=== PATIENT | male | born 1950 | race Caucasian/White ===

== ENCOUNTER 2017-03-16 18:28 | Inpatient (IN) | payer OTHER ==
[2017-03-16] MEDS ORDERED: NS 0.9% 1000 ML* 1,000 ML IV ONE (19:44)
--- NOTE | 2017-03-16 20:00 | ED ---
Chandan Martinez Benjamin, scribed for Darren Henning MD on 03/16/17 at 1945 . Abdominal Pain/Male - HPI Summary HPI Summary: 67yo male c/o intermittent diffuse abdominal pain. Pt was seen approximately 45 days ago for SBO and has hx of adhesions. Pt reported vomiting once this afternoon but denies any nausea right now. - History of Current Complaint Chief Complaint: EDAbdPain Stated Complaint: BOWEL ISSUES Time Seen by Provider: 03/16/17 19:37 Hx Obtained From: Patient Onset/Duration: Lasting Days, Still Present Timing: Intermittent Severity Initially: Moderate Severity Currently: Moderate Pain Intensity: 10 Pain Scale Used: 0-10 Numeric Location: Diffuse Radiates: No Character: Cramping, Tearing Aggravating Factor(s): Nothing Alleviating Factor(s): Nothing Associated Signs And Symptoms: Positive: Nausea - resolved, Vomiting - Allergies/Home Medications Allergies/Adverse Reactions: Allergies Allergy/AdvReac Type Severity Reaction Status Date / Time Penicillins [PCN] Allergy Anaphylatic Verified 07/07/14 20:57 Shock Home Medications: Home Medications Naproxen TAB* [Naprosyn 250 mg TAB*] 500 mg PO Q8H PRN 03/17/17 [History Confirmed 03/17/17] PMH/Surg Hx/FS Hx/Imm Hx Endocrine/Hematology History: Denies: Hx Diabetes Cardiovascular History: Denies: Hx Coronary Artery Disease, Hx Hypercholesterolemia, Hx Hypertension Respiratory History: Denies: Hx Asthma GI History: Reports: Hx Hiatal Hernia, Other GI Disorders - tumor resect from abdomen. SBO 12/2016 Denies: Hx Gastroesophageal Reflux Disease History: Denies: Hx Dialysis, Hx Renal Disease Musculoskeletal History: Reports: Hx Arthritis, Hx Osteoporosis, Other Musculoskeletal History - Right knee surgery, Right foot bone spurs removed Sensory History: Reports: Hx Contacts or Glasses Denies: Hx Hearing Aid Opthamlomology History: Reports: Hx Contacts or Glasses Neurological History: Denies: Hx Seizures - Surgical History Surgery Procedure, Year, and Place: Hernias, appendix removed in high school Infectious Disease History: Denies: Traveled Outside the [place] in Last 30 Days - Family History Known Family History: Positive: Cardiac Disease - Father of PA at age 50., Diabetes - Grandmother. - Social History Occupation: Unemployed Lives: Alone - residential Alcohol Use: None Substance Use Type: Reports: Other Substance Use Comment - Amount & Last Used: pt chews tobacco Smoking Status (MU): Never Smoked Tobacco Review of Systems Constitutional: Negative Eyes: Negative ENT: Negative Cardiovascular: Negative Respiratory: Negative Positive: Abdominal Pain, Vomiting - x1, Nausea - resolved Genitourinary: Negative Musculoskeletal: Negative Skin: Negative Neurological: Negative Psychological: Normal All Other Systems Reviewed And Are Negative: Yes Physical Exam Triage Information Reviewed: Yes Vital Signs On Initial Exam: Initial Vitals Temp Pulse Resp BP Pulse Ox 97.4 F 45 22 140/93 100 03/16/17 18:32 03/16/17 18:32 03/16/17 18:32 03/16/17 18:32 03/16/17 18:32 Vital Signs Reviewed: Yes Appearance: Positive: No Pain Distress, Thin Skin: Positive: Warm Head/Face: Positive: Normal Head/Face Inspection Eyes: Positive: YANDEL ENT: Positive: Hearing grossly normal Neck: Positive: Supple Respiratory/Lung Sounds: Positive: Clear to Auscultation, Breath Sounds Present Cardiovascular: Positive: RRR Abdomen Description: Positive: Soft, Distended. Negative: Nontender, Guarding Bowel Sounds: Positive: Present, Hypoactive Musculoskeletal: Positive: Strength/ROM Intact Neurological: Positive: Alert, Oriented to Person Place, Time Psychiatric: Positive: Affect/Mood Appropriate Diagnostics - Vital Signs Vital Signs Temp Pulse Resp BP Pulse Ox 03/16/17 18:32 97.4 F 45 22 140/93 100 - Laboratory Result Diagrams: 03/16/17 20:31 03/16/17 20:31 Lab Statement: Any lab studies that have been ordered have been reviewed, and results considered in the medical decision making process. - CT CT A/P W CT Interpretation: Positive (See Comments) - IMPRESSION: 1. MILD TO MODERATE MID SMALL BOWEL OBSTRUCTION. THE DISTRIBUTION OF NONDISTENDED SMALL BOWEL APPEARS SIMILAR TO THE PRIOR EXAM ALTHOUGH SLIGHTLY LESS DISTENDED. 2. SMALL AMOUNT OF FREE INTRAPERITONEAL FLUID. CT Interpretation Completed By: Radiologist Abdominal Pain Fem Course/Dx - Course Course Of Treatment: Discussed with Dr. Sorensen (Surgery) at 22:26. Dr. Sorensen recommends admission to the hospital, he will see him in the morning. Discussed with Dr. Alvarenga (Hospitalist) at 22:28 for admission. - Diagnoses Provider Diagnoses: SBO (small bowel obstruction) - Provider Notifications Instructed by Provider To: Admit As Inpatient Discharge - Discharge Plan Condition: Fair Disposition: ADMITTED TO [facility] The documentation as recorded by the Chandan burnett Benjamin accurately reflects the service I personally performed and the decisions made by me, Darren Henning MD.
[2017-03-16 20:44] LABS: Hematocrit 43 % (42-52); Hemoglobin 14.4 g/dl (14.0-18.0); Mean Corpuscular HGB Conc 33 g/dl (31-36); Mean Corpuscular Hemoglobin 31 pg (27-31); Mean Corpuscular Volume 92 fL (80-94); Mean Platelet Volume 7 um3 (7.4-10.4); Red Blood Count 4.71 10^6/ul (4.0-5.4); Red Cell Distribution Width 14 % (10.5-15); White Blood Count 9.3 10^3/ul (3.5-10.8)
[2017-03-16] MEDS ORDERED: Ondansetron INJ* 2 MG/ML VIAL IV ONE (20:45)
[2017-03-16 21:00] LABS: Albumin 4.3 g/dL (3.2-5.2); BUN/Creatinine Ratio 22.5 (8-20); Calcium 9.8 mg/dL (8.6-10.3); EGFR Non-African American 73.1 (>60); Globulin 4.4 g/dL (2-4); Magnesium 2.2 mg/dL (1.9-2.7); Potassium 4.3 mmol/L (3.5-5.0); Total Protein 8.7 g/dL (6.4-8.9)
[2017-03-16] MEDS ORDERED: Iohexol 300* (CONTRAST) 10 ML SDV IV ONE (21:14)
--- NOTE | 2017-03-16 21:54 | RAD ---
INDICATION: Abdominal pain, history of prior bowel obstructions and adhesions COMPARISON: Comparison is made with a prior CT of the abdomen and pelvis from December 30, 2016. TECHNIQUE: A CT scan of the abdomen and pelvis was performed with intravenous and oral contrast following intravenous injection of 79 ml of Omnipaque 300 nonionic contrast. Contiguous axial sections were obtained from the lung bases through the symphysis pubis. Images were reconstructed in the coronal and sagittal planes. FINDINGS: The lung bases are clear. No pleural effusion is present. The liver and spleen are within normal limits in size without significant focal abnormality. No calcified gallstones are seen. The pancreas appears to be within normal limits in size. The kidneys and adrenal glands are normal in size. No hydronephrosis is seen. No significant focal renal abnormality is seen. The prostate gland is enlarged measuring 5.2 cm in transverse dimension. The aorta is normal in caliber with mild calcific plaque present. No significant enlarged retroperitoneal lymph nodes are seen. Oral contrast is only present within the stomach and there is a paucity of abdominal fat limiting evaluation of the bowel. The stomach is nondistended. There is mild distention of proximal and mid small bowel loops extending into the lower abdomen. The distal small bowel and colon appear nondistended. There is air present throughout the colon. There is a moderate to large amount retained stool. There is surgical suture material present in the left upper quadrant. The patient has a history of a prior appendectomy. There is no evidence for diverticulitis or colitis. No free intraperitoneal air is seen. There is a small amount of free intraperitoneal fluid present within the pelvis. There is grade I anterior spondylolisthesis at the L5-S1 level. No significant focal osseous abnormality is seen. IMPRESSION: 1. MILD TO MODERATE MID SMALL BOWEL OBSTRUCTION. THE DISTRIBUTION OF NONDISTENDED SMALL BOWEL APPEARS SIMILAR TO THE PRIOR EXAM ALTHOUGH SLIGHTLY LESS DISTENDED. 2. SMALL AMOUNT OF FREE INTRAPERITONEAL FLUID.
[2017-03-16 22:19] LABS: Urine Bacteria Absent (Absent); Urine Bilirubin Negative (Negative); Urine Glucose Negative (Negative); Urine Nitrite Negative (Negative)
[2017-03-16] MEDS ORDERED: Morphine INJ* 2 MG/ML 1 ML SYRINGE IV ONE (22:31)
[2017-03-16] MEDS ORDERED: Morphine INJ* 2 MG/ML 1 ML SYRINGE IV PRN (22:56)
--- NOTE | 2017-03-16 23:16 | HP ---
H&P (Free Text) History and Physical: PCP: [facility] Date/Time of Evaluation: 03/16/2017 2250 CC: abdominal pain HPI: Mr Low is a 67YO incarcerated male HX SBO who presents reporting generally not feeling well this AM with abdominal cramping beginning after lunch progressing to severe pain with N/V, subjective chills, & sweats. He states this feels exactly like his 1st SBO in December of this year. Last flatus was return from CT. He had 2 small BMs today around lunch. Neither emesis nor stool had black or bloody content. He does relate to having 3 smaller episodes of abdominal pain since discharge in December that resolved by lying in bed and massaging his abdomen. PMedHx SBO OA Ambulatory Orders Acetaminophen TAB* [Tylenol TAB*] 650 mg PO Q4H PRN #30 tab 01/02/17 Allergies Penicillins [PCN] Allergy (Verified 07/07/14 20:57) Anaphylatic Shock PSurgHx appendectomy benign small bowel tumor resection incisional hernia repair x2 inguinal hernia repair SocHx: denies tobacco, alcohol, & recreational drugs; incarcerated, single, has 3 children; previously drove a truck; full code status FamHx: Mother passed of "old age". Father passed of CAD in his 50s. Sister passed of CAD. ROS: as above, otherwise reviewed and all were negative Constitutional: NAD, normally developed, well-nourished white male vitals: Vital Signs Temp 37.2 C 03/16/17 20:19 Pulse 48 03/16/17 22:30 Resp 16 03/16/17 22:45 BP 134/70 03/16/17 22:30 Pulse Ox 95 03/16/17 22:30 Intake & Output 03/15/17 03/16/17 03/16/17 23:59 11:59 23:59 Intake Total 1000 Balance 1000 Weight 59.421 kg Intake: IV Fluids 1000 Other: Date of Last Bowel 03/16/17 Movement HEENM: atraumatic; sclera/conjunctiva: non-icteric/clear; hearing: clinically intact; oropharynx: clear, mucosa moist Neck: soft tissue: non-tender; thyroid: normal Pulmonary: clear to auscultation bilaterally, good aeration, no accessory muscle use CV: RR/RR, normal S1S2, no carotid bruit, no jugular venous distention, 2+ B DP/ PT, no edema Abdominal: soft, non-distended, mildly diffusely tender, no rebound/guarding/ rigidity, normoactive bowel sounds, no hepatosplenomegaly or masses, no costovertebral angle tenderness Musculoskeletal: general: grossly intact, DIP deformities from OA; gait: in leg cuffs Integumental: normal appearance and texture of exposed skin Psychiatric orientation: AA&O to PPS affect: calm mood: pleasant eye contact: good content: reliable responses: timely insight: good Testing: Lab Results 03/16/17 03/16/17 03/16/17 Range/Units 20:31 20:31 20:31 WBC 9.3 (3.5-10.8) 10^3/ul RBC 4.71 (4.0-5.4) 10^6/ul Hgb 14.4 (14.0-18.0) g/dl Hct 43 (42-52) % MCV 92 (80-94) fL MCH 31 (27-31) pg MCHC 33 (31-36) g/dl RDW 14 (10.5-15) % Plt Count 189 (150-450) 10^3/ul MPV 7 L (7.4-10.4) um3 Neut % (Auto) 83.2 H (38-83) % Lymph % (Auto) 12.1 L (25-47) % [place] % (Auto) 4.0 (1-9) % Eos % (Auto) 0.2 (0-6) % Baso % (Auto) 0.5 (0-2) % Absolute Neuts (auto) 7.8 H (1.5-7.7) 10^3/ul Absolute Lymphs (auto) 1.1 (1.0-4.8) 10^3/ul Absolute Monos (auto) 0.4 (0-0.8) 10^3/ul Absolute Eos (auto) 0 (0-0.6) 10^3/ul Absolute Basos (auto) 0 (0-0.2) 10^3/ul Absolute Nucleated RBC 0 10^3/ul Nucleated RBC % 0 Sodium 137 (133-145) mmol/L Potassium 4.3 (3.5-5.0) mmol/L Chloride 103 (101-111) mmol/L Carbon Dioxide 22 (22-32) mmol/L Anion Gap 12 H (2-11) mmol/L BUN 23 (6-24) mg/dL Creatinine 1.02 (0.67-1.17) mg/dL Est GFR ( Amer) 94.0 (>60) Est GFR (Non-Af Amer) 73.1 (>60) BUN/Creatinine Ratio 22.5 H (8-20) Glucose 96 (70-100) mg/dL Lactic Acid 1.9 (0.5-2.0) mmol/L Calcium 9.8 (8.6-10.3) mg/dL Magnesium 2.2 (1.9-2.7) mg/dL Total Bilirubin 1.00 (0.2-1.0) mg/dL AST 20 (13-39) U/L ALT 12 (7-52) U/L Alkaline Phosphatase 55 (34-104) U/L Total Protein 8.7 (6.4-8.9) g/dL Albumin 4.3 (3.2-5.2) g/dL Globulin 4.4 H (2-4) g/dL Albumin/Globulin Ratio 1.0 (1-3) Lipase 16 (11.0-82.0) U/L Urine Color Urine Appearance Urine pH (5-9) Ur Specific [place] (1.010-1.030) Urine Protein (Negative) Urine Ketones (Negative) Urine Blood (Negative) Urine Nitrate (Negative) Urine Bilirubin (Negative) Urine Urobilinogen (Negative) Ur Leukocyte Esterase (Negative) Urine WBC (Auto) (Absent) Urine RBC (Auto) (Absent) Urine Bacteria (Absent) Urine Glucose (Negative) 03/16/ Range/Units 22:05 WBC (3.5-10.8) 10^3/ul RBC (4.0-5.4) 10^6/ul Hgb (14.0-18.0) g/dl Hct (42-52) % MCV (80-94) fL MCH (27-31) pg MCHC (31-36) g/dl RDW (10.5-15) % Plt Count (150-450) 10^3/ul MPV (7.4-10.4) um3 Neut % (Auto) (38-83) % Lymph % (Auto) (25-47) % [place] % (Auto) (1-9) % Eos % (Auto) (0-6) % Baso % (Auto) (0-2) % Absolute Neuts (auto) (1.5-7.7) 10^3/ul Absolute Lymphs (auto) (1.0-4.8) 10^3/ul Absolute Monos (auto) (0-0.8) 10^3/ul Absolute Eos (auto) (0-0.6) 10^3/ul Absolute Basos (auto) (0-0.2) 10^3/ul Absolute Nucleated RBC 10^3/ul Nucleated RBC % Sodium (133-145) mmol/L Potassium (3.5-5.0) mmol/L Chloride (101-111) mmol/L Carbon Dioxide (22-32) mmol/L Anion Gap (2-11) mmol/L BUN (6-24) mg/dL Creatinine (0.67-1.17) mg/dL Est GFR ( Amer) (>60) Est GFR (Non-Af Amer) (>60) BUN/Creatinine Ratio (8-20) Glucose (70-100) mg/dL Lactic Acid (0.5-2.0) mmol/L Calcium (8.6-10.3) mg/dL Magnesium (1.9-2.7) mg/dL Total Bilirubin (0.2-1.0) mg/dL AST (13-39) U/L ALT (7-52) U/L Alkaline Phosphatase (34-104) U/L Total Protein (6.4-8.9) g/dL Albumin (3.2-5.2) g/dL Globulin (2-4) g/dL Albumin/Globulin Ratio (1-3) Lipase (11.0-82.0) U/L Urine Color Reyna Urine Appearance Clear Urine pH 6.0 (5-9) Ur Specific [place] 1.042 H (1.010-1.030) Urine Protein 1+(30 mg/dl) H (Negative) Urine Ketones 1+ H (Negative) Urine Blood Negative (Negative) Urine Nitrate Negative (Negative) Urine Bilirubin Negative (Negative) Urine Urobilinogen Negative (Negative) Ur Leukocyte Esterase Negative (Negative) Urine WBC (Auto) Absent (Absent) Urine RBC (Auto) Absent (Absent) Urine Bacteria Absent (Absent) Urine Glucose Negative (Negative) CT abd/pel W, personally reviewed: IMPRESSION: 1. MILD TO MODERATE MID SMALL BOWEL OBSTRUCTION. THE DISTRI- BUTION OF NONDISTENDED SMALL BOWEL APPEARS SIMILAR TO THE PRIOR EXAM ALTHOUGH SLIGHTLY LESS DISTENDED. 2. SMALL AMOUNT OF FREE INTRAPERITONEAL FLUID. Impression: 67M HX multiple abdominal surgeries & SBO presents with recurrent SBO DIAGNOSIS & PLAN Primary SBO : NPO for bowel rest : NG tube for decompression & evacuation of stomach : pain control : Maria Del Rosario Zamudio MD surgery consulted by Kami Henning MD ED; will evaluate in AM : no current indication for ABX, monitor for fever, elevating WBCs, etc : supportive care Secondary OA : PRN acetaminophen Admission Rational: inpatient for SBO not anticipated to resolve adequately to allow for discharge w/i 48h DVTp: SCDs Code Status: full
[2017-03-17] MEDS: Morphine INJ* 2 MG/ML 1 ML SYRINGE IV PRN ×3 (01:28→12:41)
[2017-03-17] MEDS: NS 0.9% 1000 ML* 1,000 ML IV SCH ×3 (01:29→17:02)
[2017-03-17 06:34] LABS: Hematocrit 36 % (42-52); Mean Corpuscular HGB Conc 33 g/dl (31-36); Mean Corpuscular Hemoglobin 31 pg (27-31); Mean Corpuscular Volume 92 fL (80-94); Mean Platelet Volume 7 um3 (7.4-10.4); Red Cell Distribution Width 15 % (10.5-15); White Blood Count 5.9 10^3/ul (3.5-10.8)
[2017-03-17] MEDS ORDERED: Ondansetron INJ* 2 MG/ML VIAL IV PRN (08:20)
--- NOTE | 2017-03-17 08:21 | PN ---
Subjective Date of Service: 03/17/17 Interval History: Patient seen this morning. Says he is feeling better today. No N/V since ED. Passed a small amount of gas, reports small BMs yesterday AM, none since hospitalization. Reports 3 additional mild episodes of these symptoms since last discharge that he felt he was able to manage on his own in residential. Family History: Unchanged from Admission Social History: Unchanged from Admission Past Medical History: Unchanged from Admission Objective Active Medications: Sodium Chloride (Ns 0.9% 1000 Ml*) 1,000 mls @ 125 mls/hr IV PER RATE JAYNA Last Admin: 03/17/17 01:29 Dose: 125 mls/hr Morphine Sulfate (Morphine Inj (Syringe)*) 2 mg IV Q2H PRN PRN Reason: PAIN - MILD Last Admin: 03/17/17 06:10 Dose: 2 mg Vital Signs 03/16/17 03/16/17 03/16/17 22:59 23:00 23:30 Temperature Pulse Rate 56 70 49 Respiratory Rate Blood Pressure 154/79 129/81 (mmHg) O2 Sat by Pulse 98 99 98 Oximetry 03/17/17 03/17/17 03/17/17 07:10 07:41 07:55 Temperature 98.1 F Pulse Rate 45 Respiratory 18 18 18 Rate Blood Pressure 112/64 (mmHg) O2 Sat by Pulse 97 Oximetry Oxygen Devices in Use Now: None Appearance: Middle-aged, M, laying in bed in NAD Eyes: No Scleral Icterus Ears/Nose/Mouth/Throat: - - Dry MM Neck: NL Appearance and Movements; NL JVP Respiratory: Symmetrical Chest Expansion and Respiratory Effort, Clear to Auscultation Cardiovascular: - - Bradycardia, s1 and s2 present, no m/g/r Abdominal: - - Soft, non-distended, mild TTP diffusely, BS+ Lymphatic: No Cervical Adenopathy Extremities: No Edema Skin: No Rash or Ulcers Neurological: Alert and Oriented x 3 Lines/Tubes/Other Access: Clean, Dry and Intact Naso-enteral Tube Result Diagrams: 03/17/17 06:08 03/16/17 20:31 Assess/Plan/Problems-Billing Assessment: SBO in a 67 yo M with hx of abdominal surgeries and SBO - Patient Problems (1) SBO (small bowel obstruction) Current Visit: No Comment: Patient reports some improvement today. Continue NPO, NGT for now. Surgery to evaluate. Ordered repeat AXR for this morning. Continue analgesia/antiemetics. (2) Bradycardia Current Visit: No Comment: Baseline, asymptomatic (3) DVT prophylaxis Current Visit: No Comment: HSQ Status and Disposition: Inpatient for SBO
--- NOTE | 2017-03-17 09:10 | RAD ---
INDICATION: Small bowel obstruction. COMPARISON: Comparison is made with a prior CT of the abdomen and pelvis from March 16, 2017. TECHNIQUE: Supine and upright views of the abdomen were obtained. FINDINGS: The distal portion of a nasogastric tube is noted in the left upper quadrant. There is moderate distention of proximal and mid small bowel with air-fluid levels consistent with a partial small bowel obstruction. Air is seen within the colon which appears nondistended. No free intraperitoneal air is seen. Contrast is noted within the urinary bladder from the prior CT study. IMPRESSION: PARTIAL SMALL BOWEL OBSTRUCTION, UNCHANGED.
[2017-03-17] MEDS ORDERED: NS 0.9% 1000 ML* 1,000 ML IV SCH (12:35)
[2017-03-17] MEDS ORDERED: NS 0.9% 1000 ML* 1,000 ML IV ONE (16:56)
--- NOTE | 2017-03-17 23:17 | CONS ---
SURGICAL CONSULTATION: DATE OF CONSULTATION: 03/17/17 REASON FOR CONSULTATION: Small bowel obstruction. HISTORY OF PRESENT ILLNESS: Mr. Low is a 67-year-old gentleman, who presented from [facility] to the [facility] Emergency Room with the second hospital visit for small bowel obstruction. He had a previous admission in December of this year. The patient reports he had 3 similar episodes after his discharge in December, which resolved on their own. This particular episode began after lunch on 03/16/17. He recalls for breakfast, he had 6 slices of white toast and then for lunch, he had a Sloppy Giles and an apple. Immediately after, he began having generalized abdominal pain , crampy in nature, and progressively more severe. He was brought to the emergency room at [facility] where he experienced nausea and vomiting and had multiple episodes, which were brownish. There is no hematemesis. He has had no bowel movement on Saturday. He does recall passing flatus upon returning from his CT scan in the emergency room, yesterday. The patient has had no further bowel movement or flatus since. He has not experiencing any fevers or chills. PAST MEDICAL HISTORY: Osteoarthritis. 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 Subsequent incisional hernia at the midline laparotomy, which was repaired. Right inguinal hernia repair. ALLERGIES: PENICILLIN causes anaphylaxis. MEDICATIONS: Arthritis pain medication. SOCIAL HISTORY: He denies tobacco, alcohol, or recreational drug use. He is incarcerated at [facility]. 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 FAMILY HISTORY: Coronary artery disease. REVIEW OF SYSTEMS: A 14-point review of systems was completed and significant for the above mentioned issues otherwise negative. PHYSICAL EXAMINATION: General: Well-developed, well-nourished, 67-year-old gentleman, in no acute distress, lying in the hospital bed. Vital Signs: Temperature 98.0, pulse 44, respiration 16, O2 sat 97% on room air, blood pressure 134/63. HEENT: Head is normocephalic and atraumatic. Sclerae anicteric. Mucous membranes are moist. No otorrhea or rhinorrhea. NG tube is intact and draining brownish fluid. Dentition is poor. Neck is symmetrical. Trachea is midline. Abdomen has no obvious distention. Bowel sounds are present. Midline scar, well healed bilateral inguinal scars. Soft, nontender. No palpable masses. No hernias. Extremities are warm. LABORATORY DATA AND DIAGNOSTIC DATA: WBC is 5.9, hemoglobin 12, hematocrit 36, platelets 167. Chemistries on admission were essentially normal. CT scan images from 03/16/17 were reviewed and the patient noted to have the contrast only within the stomach. There is mild distention in the proximal and mid small bowel and air throughout the colon with retained stool. Staple lines noted in the left upper quadrant. IMPRESSION: This is a 67-year-old gentleman with a recurrent small bowel obstruction, which appears to be partial obstruction. At present, the patient does not have a surgical abdomen. PLAN/RECOMMENDATIONS: I agree with plan for NG tube decompression, bowel rest, and IV fluids. It seems likely he will resolve this without surgical intervention. We will repeat abdominal x-rays in the morning. We will follow. [id number]/[facility] #: [id number] [facility] STATE HOSPITALKami
[2017-03-18] MEDS: NS 0.9% 1000 ML* 1,000 ML IV SCH ×2 (02:06→19:23)
[2017-03-18 06:37] LABS: Calcium 8.1 mg/dL (8.6-10.3); EGFR African American 138.2 (>60); EGFR Non-African American 107.5 (>60); Potassium 3.7 mmol/L (3.5-5.0)
--- NOTE | 2017-03-18 07:25 | PN ---
Subjective Date of Service: 03/18/17 Interval History: Patient seen this morning. Feels abdomen is improving, passed gas last night. No BM yet. Family History: Unchanged from Admission Social History: Unchanged from Admission Past Medical History: Unchanged from Admission Objective Active Medications: Sodium Chloride (Ns 0.9% 1000 Ml*) 1,000 mls @ 125 mls/hr IV PER RATE JAYNA Morphine Sulfate (Morphine Inj (Syringe)*) 2 mg IV Q2H PRN Ondansetron HCl (Zofran Inj*) 4 mg IV Q4H PRN Vital Signs 03/17/17 03/17/17 03/17/17 07:41 07:55 11:54 Temperature 98.1 F 98.0 F Pulse Rate 45 44 Respiratory 18 18 14 Rate Blood Pressure 112/64 134/63 (mmHg) O2 Sat by Pulse 97 97 Oximetry 03/17/17 03/17/17 03/17/17 19:00 19:10 23:44 Temperature 99.3 F 98.5 F Pulse Rate 47 51 Respiratory 16 20 16 Rate Blood Pressure 150/67 127/65 (mmHg) O2 Sat by Pulse 96 97 Oximetry 03/18/17 03:27 Temperature 98.7 F Pulse Rate 49 Respiratory 16 Rate Blood Pressure 131/66 (mmHg) O2 Sat by Pulse 96 Oximetry Oxygen Devices in Use Now: None Appearance: Middle-aged, M, laying in bed in NAD Eyes: No Scleral Icterus Ears/Nose/Mouth/Throat: - - Dry MM Neck: NL Appearance and Movements; NL JVP Respiratory: Symmetrical Chest Expansion and Respiratory Effort, Clear to Auscultation Cardiovascular: NL Sounds; No Murmurs; No JVD, - - Bradycardia Abdominal: - - Soft, non-distended, mild TTP in upper quadrants, BS hypoactive Lymphatic: No Cervical Adenopathy Extremities: No Edema Skin: No Rash or Ulcers Neurological: Alert and Oriented x 3 Result Diagrams: 03/17/17 06:08 03/18/17 05:52 Assess/Plan/Problems-Billing Assessment: SBO in a 67 yo M with hx of abdominal surgeries and SBO - Patient Problems (1) SBO (small bowel obstruction) Current Visit: No Comment: NG tube output picked up however appears red/ bloody. Will check gastric occult blood and CBC. Start IV PPI. Stop NGT suction for now. May need GI consult. Appreciate surgery assistance. Patient passing gas now. Repeat AXR this morning. Continue NPO. Continue analgesia/antiemetics. (2) Bradycardia Current Visit: No Comment: Baseline, asymptomatic (3) DVT prophylaxis Current Visit: No Comment: SCDs Status and Disposition: Inpatient for SBO
[2017-03-18 07:39] LABS: Hematocrit 35 % (42-52); Hemoglobin 11.7 g/dl (14.0-18.0); Mean Corpuscular HGB Conc 33 g/dl (31-36); Mean Corpuscular Hemoglobin 31 pg (27-31); Mean Corpuscular Volume 93 fL (80-94); Mean Platelet Volume 7 um3 (7.4-10.4); Red Cell Distribution Width 14 % (10.5-15); White Blood Count 4.7 10^3/ul (3.5-10.8)
--- NOTE | 2017-03-18 08:42 | RAD ---
INDICATION: Follow-up small bowel obstruction COMPARISON: Most recent comparison radiograph is dated March 17, 2017 TECHNIQUE: Supine and upright views of the abdomen were obtained. FINDINGS: There is a gastric tube with the tip terminating below the level the diaphragm at the expected location of the gastric fundus. The dilated loops of air-filled small bowel seen on the previous radiograph are not well seen today. There is the appearance of air in the proximal small bowel but these loops are no longer pathologically dilated. No free intraperitoneal air is seen. No grossly abnormal or pathologic appearing calcifications are noted. Visualized bones are within normal limits for the patient's age. IMPRESSION: Resolution of pathologically dilated air-filled loops of small bowel.
[2017-03-18] MEDS: Pantoprazole IV* 40 MG IV SCH ×2 (08:57→21:01)
--- NOTE | 2017-03-18 10:58 | SURGPN ---
Subjective - Introduction -: Reports doing better, passing flatus. Feels hungry, wants to start eating. Denies nausea, vomiting or abdominal pain. NG clamped with coffee ground output noted. - Medications -: Active Medications Generic Name Dose Route Start Last Admin Trade Name Freq PRN Reason Stop Dose Admin Sodium Chloride 1,000 mls @ 125 mls/hr 03/17/17 16:56 03/18/17 02:06 Ns 0.9% 1000 Ml* IV 125 mls/hr PER RATE JAYNA Administration Morphine Sulfate 2 mg 03/16/17 23:58 03/17/17 12:41 Morphine Inj (Syringe)* IV 2 mg Q2H PRN Administration PAIN - MILD Ondansetron HCl 4 mg 03/17/17 08:20 Zofran Inj* IV Q4H PRN NAUSEA Pantoprazole Sodium 40 mg 03/18/17 09:00 03/18/17 08:57 Protonix Iv* IV 40 mg BID JAYNA Administration Objective - Objective -: Awake and alert. comfortable in bed. - Intake and Output -: Intake & Output 03/16/17 03/17/17 03/18/17 03/19/17 06:59 06:59 06:59 06:59 Intake Total 755 3165 0 Output Total 220 1725 200 Balance 535 1440 -200 Weight 132 lb 11.2 oz 136 lb 9.6 oz Intake: IV Fluids 580 3135 NS 580 3135 Oral 0 0 0 NG Tube Irrigate Amount 175 30 Output: NG Tube Drainage Amount 925 Urine 220 800 200 Other: # Bowel Movements 0 Surgical Physical Exam - Comments -: VSS, afebrile Lungs CTA bilat. Heart RRR, no murmurs. Abdomen soft, NT, ND. BS active in all quadrants. Abdominal x-ray reviewed, SBO resolved. Assessment and Plan - Assessment -: A 67 y/o male with multiple abdominal surgery, admitted with SBO, improving. - Plan Additional Comments: Despite coffee ground output in NG, likely it is traumatic in nature from having the NG in. Doubt any active GI bleed. Agree with PPI prophylaxis Also recommend d/c NG tube and start clear liquids today. SBO seems to be resolving. Will f/u with him during this admission.
[2017-03-19] MEDS: NS 0.9% 1000 ML* 1,000 ML IV SCH (03:17)
[2017-03-19 05:54] LABS: Hematocrit 32 % (42-52); Mean Corpuscular HGB Conc 34 g/dl (31-36); Mean Corpuscular Hemoglobin 31 pg (27-31); Mean Corpuscular Volume 91 fL (80-94); Mean Platelet Volume 6 um3 (7.4-10.4); Red Blood Count 3.54 10^6/ul (4.0-5.4); Red Cell Distribution Width 14 % (10.5-15); White Blood Count 4.7 10^3/ul (3.5-10.8)
[2017-03-19 06:09] LABS: BUN/Creatinine Ratio 22.1 (8-20); EGFR Non-African American 101.1 (>60)
--- NOTE | 2017-03-19 07:33 | PN ---
Subjective Date of Service: 03/19/17 Interval History: Patient seen this morning. Feels well, denies pain at this time. Tolerating clears. Had loose brown, non-bloody BM overnight. Family History: Unchanged from Admission Social History: Unchanged from Admission Past Medical History: Unchanged from Admission Objective Active Medications: Sodium Chloride (Ns 0.9% 1000 Ml*) 1,000 mls @ 125 mls/hr IV PER RATE JAYNA Morphine Sulfate (Morphine Inj (Syringe)*) 2 mg IV Q2H PRN Ondansetron HCl (Zofran Inj*) 4 mg IV Q4H PRN Pantoprazole Sodium (Protonix Iv*) 40 mg IV BID JAYNA Vital Signs 03/18/17 03/18/17 03/18/17 07:31 08:00 11:23 Temperature 97.9 F 98.0 F Pulse Rate 50 46 Respiratory 16 18 16 Rate Blood Pressure 105/59 110/58 (mmHg) O2 Sat by Pulse 97 98 Oximetry 03/18/17 03/19/17 23:55 03:11 Temperature 97.9 F 97.9 F Pulse Rate 41 41 Respiratory 16 16 Rate Blood Pressure 131/53 107/58 (mmHg) O2 Sat by Pulse 100 96 Oximetry Oxygen Devices in Use Now: None Appearance: Middle-aged, M, laying in bed in NAD Eyes: No Scleral Icterus Ears/Nose/Mouth/Throat: Mucous Membranes Moist Neck: NL Appearance and Movements; NL JVP Respiratory: Symmetrical Chest Expansion and Respiratory Effort, Clear to Auscultation Cardiovascular: NL Sounds; No Murmurs; No JVD, - - Bradycardia Abdominal: - - Soft, non-distended, minimal TTP in upper quadrants, BS+ Lymphatic: No Cervical Adenopathy Extremities: No Edema Skin: No Rash or Ulcers Neurological: Alert and Oriented x 3 Result Diagrams: 03/19/17 05:47 03/19/17 05:47 Microbiology and Other Data: Microbiology 03/18/17 07:35 Gastric Occult Blood - Final Gastric Fluid Assess/Plan/Problems-Billing Assessment: SBO in a 67 yo M with hx of abdominal surgeries and SBO - Patient Problems (1) SBO (small bowel obstruction) Current Visit: No Comment: Appreciate surgery assistance, blood in NG output thought most likely due to irritation of the stomach from the tube, removed. Has been tolerating clears, will advance to full this morning. Had non-bloody BM. Continue PPI for now. D/C IVF. (2) Bradycardia Current Visit: No Comment: Baseline, asymptomatic (3) DVT prophylaxis Current Visit: No Comment: SCDs Status and Disposition: Inpatient for SBO
[2017-03-19] MEDS: Pantoprazole IV* 40 MG IV SCH (08:18)
[2017-03-19 12:25] VITALS: BP 109/59
--- NOTE | 2017-03-19 12:49 | PN ---
Progress Note - Progress Note Date of Service: 03/19/17 Note: Surgery Progress: (patient seen this a.m. ~ 9) S: Feels better; sohail full liq for breakfast. Had BM yest. No pain subjectively. O: Vital Signs - 8 hr 03/19/17 03/19/17 03/19/17 07:31 08:00 11:33 Temperature 97.7 F 98.0 F Pulse Rate 43 44 Respiratory 16 16 16 Rate Blood Pressure 122/64 109/59 (mmHg) O2 Sat by Pulse 98 98 Oximetry Intake and Output Last 24 Hours 03/17/17 03/18/17 03/19/17 03/20/17 06:59 06:59 06:59 06:59 Intake Total 1755 3165 3757 560 Output Total 220 1725 2220 0 Balance 1535 1440 1537 560 Weight 132 lb 11.2 oz 136 lb 9.6 oz 140 lb 8 oz Intake: IV Fluids 1580 3135 2232 NS 580 3135 2232 Oral 0 0 1525 560 NG Tube Irrigate Amount 175 30 Output: NG Tube Drainage Amount 925 500 Urine 003 056 6963 0 Other: Date of Last Bowel 03/16/17 Movement # Bowel Movements 0 Estimated Stool Amount Medium Heart: reg (mildly michael, c/w baseline) Lungs: clear Abd: flat, nondistended; +BS; soft; nontender to palp A/P: SBO, resolving; agree w/ adv of diet and d/c. Surgical f/u prn, though there may be consideration of semi-elective laparoscopy as this is his 3 or 4th episode in the past 2 months, two requiring admission.
--- NOTE | 2017-03-20 02:27 | DS ---
DISCHARGE SUMMARY: DATE OF ADMISSION: 03/16/17 DATE OF DISCHARGE: 03/19/17 The patient is an inmate at [facility]. PRINCIPAL DISCHARGE DIAGNOSES: 1. SBO 2. GASTRITIS SECONDARY DISCHARGE DIAGNOSES: 1. BRADYCARDIA DISCHARGE MEDICATION REGIMEN: 1. Omeprazole 20 mg by mouth daily. 2. Acetaminophen 650 mg by mouth every 4 hours as needed for pain. STUDIES DONE DURING HOSPITALIZATION: CT abdomen and pelvis, impression: Mild- to- moderate mid small bowel obstruction. The distribution of nondistended small bowel appears similar to the prior exam, although slightly less distended and a small amount of free intraperitoneal fluid. Abdominal x-ray, 03/17/17, impression: Partial small bowel obstruction, unchanged. Abdominal x-ray, 03/18/17: Resolution of pathologically dilated air filled loops of small bowel. CONSULTANTS DURING HOSPITALIZATION: Wilson Zamudio MD, General Surgery. HISTORY OF PRESENT ILLNESS AND HOSPITAL SUMMARY: Please see the full history and physical by Dr. Reyes Lutz for full details. Briefly, Mr. Low is a 67-year- old man who presented to the hospital with abdominal pain, nausea, and vomiting similar to his previous episodes of small bowel obstruction. Surgery was consulted. The patient was treated conservatively with NG tube, n.p.o., and IV fluids. Patient initially did not have much NG tube output, but then this picked up the following day. There was some blood noted in the NG tube. The patient was started on PPI and blood counts were checked. However, they remained relatively stable near the patient's baseline. It was felt that the bleeding was likely due to irritation from the NG tube rather than an actual GI bleed from an ulcer or vessel. However, the patient will be continued on PPI and discharged and should try to avoid NSAIDs. Over the following days, the patient's symptoms improved, began to pass gas, was tolerating a clear liquid diet, and then had a bowel movement. On the day of discharge, he tolerated full liquids and has no issues. He will be discharged on a full liquid diet with plans to slowly progress over the following days to a soft diet and then to a regular diet, although he should still try to stick with relatively soft foods in the future due to his multiple episodes of this obstruction. The patient will be discharged back to [facility]. TIME SPENT: Total time spent on this discharge, 45 minutes. This is a summary of the hospitalization. Please see the full medical record for further details. [id number]/[facility] #: [id number] MTDD
== END 2017-03-19 15:20 | DRG 247 ==
LOC: ED 18:28 → EEVIPCON 22:50 → SSU 22:50
PROVIDERS: ADMIT Hospitalist; ATTEND Hospitalist
PROC: 0D9670Z Drainage of Stomach with Drainage Device, Via Natural or Artificial Opening (ICD-10-PCS; principal; 2017-03-16)
DX: K56.60 Unspecified intestinal obstruction (principal); R00.1 Bradycardia, unspecified; K29.70 Gastritis, unspecified, without bleeding; M19.90 Unspecified osteoarthritis, unspecified site; Z88.0 Allergy status to penicillin; Z82.49 Family history of ischemic heart disease and other diseases of the circulatory system
CPT/HCPCS: 36415; 74020; 74177; 80048; 80053; 81003; 81015; 82271; 83605; 83690; 83735; 85025; 85027; J2270; J2405; Q9967